=== PATIENT | male | born 2000 | race Caucasian/White ===

== ENCOUNTER 2022-09-01 10:49 | Emergency (ER) | payer BC ==
[2022-09-01] MEDS ORDERED: Morphine 4 MG/ML VIAL ONE ×2 (11:05→14:53)
[2022-09-01] MEDS ORDERED: CEFAZOLIN 1 GM VIAL ONE ×2 (12:20→12:42)
[2022-09-01] MEDS ORDERED: Boostrix 0.5 ML (Tdap) VIAL (>/=7 yrs of age) ONE (12:20)
== END 2022-09-01 15:58 | disposition short-term general hospital (02) ==
LOC: CSHERS 10:49
DX: S82.302B Unspecified fracture of lower end of left tibia, initial encounter for open fracture type I or II (principal); S82.832B Other fracture of upper and lower end of left fibula, initial encounter for open fracture type I or II; Z23 Encounter for immunization; W18.30XA Fall on same level, unspecified, initial encounter
CPT/HCPCS: 29505; 90471; 90715; 96365; 96375; 96376; J0690; J2270